=== PATIENT | male | born 1985 | race Caucasian/White ===

== ENCOUNTER 2016-10-29 08:12 | Emergency (ER) | payer SELFPAY ==
[2016-10-29 08:24] VITALS: BP 155/81
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
== END 2016-10-29 08:50 | disposition home or self-care (01) ==
LOC: FB.ED 08:12
DX: K04.7 Periapical abscess without sinus (principal); K05.10 Chronic gingivitis, plaque induced; Z88.0 Allergy status to penicillin
CPT/HCPCS: 99283

== ENCOUNTER 2017-10-09 02:28 | Emergency (ER) | payer SELFPAY ==
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
[2017-10-09 03:04] VITALS: BP 134/77
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
== END 2017-10-09 03:55 | disposition home or self-care (01) ==
LOC: FB.ED 02:28
DX: S62.667A Nondisplaced fracture of distal phalanx of left little finger, initial encounter for closed fracture (principal); S01.81XA Laceration without foreign body of other part of head, initial encounter; S01.111A Laceration without foreign body of right eyelid and periocular area, initial encounter; Y09 Assault by unspecified means; Z88.5 Allergy status to narcotic agent; Z88.0 Allergy status to penicillin
CPT/HCPCS: 12001; 12011; 12013; 29130; 70150; 71101-RT; 73130-50; 99283; 99285

== ENCOUNTER 2019-01-24 10:01 | Emergency (ER) | payer SELFPAY ==
[2019-01-24] MEDS ORDERED: Sodium Chloride 0.9% 10 ML Syringe FLUSH PRN (10:15)
[2019-01-24] MEDS ORDERED: Sodium Chloride 0.9% 1,000 ML IV ONE (10:19)
[2019-01-24] MEDS ORDERED: Ondansetron 4 MG/2 ML SDV IVPUSH ONE (10:19)
[2019-01-24] MEDS ORDERED: Ketorolac 30 MG/ML SDV IVPUSH ONE (10:21)
--- NOTE | 2019-01-24 10:39 | EDM.PDOC ---
ED HPI GENERAL MEDICAL PROBLEM - General Chief Complaint: Headache Stated Complaint: MIGRAINE Time Seen by Provider: 01/24/19 10:10 Source of Information: Reports: Patient - History of Present Illness INITIAL COMMENTS - FREE TEXT/NARRATIVE: Patient is a 33 YO WM who presented to the ED because of a throbbing headcahe, bifrontal,12/07 with associated N/V,photophobia,phonophobia and tinnitus. there is no associated fever or neck stiffness. He took OTC ibuprofen 600 mg without relief of his headache. Onset: Today Onset Date: 01/24/19 Onset Time: 07:30 Migraine Pain Score (Numeric/FACES): 10 - Related Data Allergies Allergy/AdvReac Type Severity Reaction Status Date / Time Penicillins Allergy Hives Verified 01/24/19 10:17 codeine Allergy Nausea and Uncoded 10/09/17 02:50 Vomiting Home Meds: Home Meds Ibuprofen 600 mg PO Q6H PRN 01/24/19 [History] Past Medical History - Past Health History Medical/Surgical History: Denies Medical/Surgical History Neurological History: Reports: Migraines Psychiatric History: Reports: Anxiety Social & Family History - Caffeine Use Caffeine Use: Reports: Coffee, Soda ED ROS GENERAL - Review of Systems Review Of Systems: See Below Constitutional: Reports: No Symptoms HEENT: Reports: No Symptoms Respiratory: Reports: No Symptoms Cardiovascular: Reports: No Symptoms Endocrine: Reports: No Symptoms GI/Abdominal: Reports: No Symptoms : Reports: No Symptoms Musculoskeletal: Reports: No Symptoms Skin: Reports: No Symptoms Neurological: Reports: Headache Psychiatric: Reports: No Symptoms Hematologic/Lymphatic: Reports: No Symptoms - Physical Exam Exam: See Below Exam Limited By: No Limitations General Appearance: Alert, No Apparent Distress Eye Exam: Bilateral Eye: PERRL Ears: Normal External Exam, Normal Canal Throat/Mouth: Normal Inspection, Normal Lips Head Exam: Atraumatic, Normocephalic Neck: Normal Inspection, Supple, Non-Tender Respiratory/Chest: No Respiratory Distress, Lungs Clear, Normal Breath Sounds, No Accessory Muscle Use Cardiovascular: Normal Peripheral Pulses, Regular Rate, Rhythm, No Gallop, No Murmur, No Rub GI/Abdominal: Normal Bowel Sounds, Soft, Non-Tender (Male) Exam: Deferred Rectal (Males) Exam: Normal Exam Neuro Exam (Abbreviated): Alert, Oriented, CN II-XII Intact, Normal Cognition, Normal Gait Course - Vital Signs Text/Narrative:: Labs reviewed and discussed with patient IVF Toradol 30 mg IV x1 Zofran 4 mg IV x1 imitrex 6 mg SC x1 Vistaril 50 mg IM x1 Last Recorded V/S: Last Vital Signs Temp 36.3 C 01/24/19 10:05 Pulse 58 L 01/24/19 11:19 Resp 16 01/24/19 11:19 BP 103/75 01/24/19 11:19 Pulse Ox 100 01/24/19 11:19 - Orders/Labs/Meds Orders: Active Orders 24 hr Category Date Time Status Sodium Chloride 0.9% [Saline Flush] Med 01/24/19 10:15 Active 10 ml FLUSH ASDIRECTED PRN Medication Orders Sodium Chloride (Saline Flush) 10 ml FLUSH ASDIRECTED PRN PRN Reason: IV Use Last Admin: 01/24/19 10:15 Dose: 10 ml Labs: Laboratory Tests 01/24/19 01/24/19 Range/Units 10:40 10:40 WBC 9.8 (4.5-12.0) X10-3/uL RBC 5.27 (4.30-5.75) x10(6)uL Hgb 15.9 (13.5-17.8) g/dL Hct 48.0 (30.0-51.3) % MCV 91.0 (80-96) fL MCH 30.1 (27.7-33.6) pg MCHC 33.1 (32.2-35.4) g/dL RDW 13.3 (11.5-15.5) % Plt Count 239 (125-369) X10(3)uL MPV 8.8 (7.4-10.4) fL Neut % (Auto) 65.3 (46-82) % Lymph % (Auto) 21.9 (13-37) % [place] % (Auto) 8.6 (4-12) % Eos % (Auto) 2 (1.0-5.0) % Baso % (Auto) 2 (0-2) % Neut # (Auto) 6.4 (1.6-8.3) # Lymph # (Auto) 2.1 (0.6-5.0) # [place] # (Auto) 0.8 (0.0-1.3) # Eos # (Auto) 0.2 (0.0-0.8) # Baso # (Auto) 0.2 (0.0-0.2) # Sodium 139 (135-145) mmol/L Potassium 4.1 (3.5-5.3) mmol/L Chloride 104 (100-110) mmol/L Carbon Dioxide 27 (21-32) mmol/L BUN 11 (7-18) mg/dL Creatinine 1.1 (0.70-1.30) mg/dL Est Cr Clr Drug Dosing 115.49 mL/min Estimated GFR (MDRD) > 60 (>60) BUN/Creatinine Ratio 10.0 (9-20) Glucose 102 (80-116) mg/dL Calcium 8.4 L (8.6-10.2) mg/dL Meds: Medications Generic Name Dose Route Start Last Admin Trade Name Freq PRN Reason Stop Dose Admin Sodium Chloride 10 ml 01/24/19 10:15 01/24/19 10:15 Saline Flush FLUSH 10 ml ASDIRECTED PRN Administration IV Use Discontinued Medications Generic Name Dose Route Start Last Admin Trade Name Freq PRN Reason Stop Dose Admin Hydroxyzine HCl 50 mg 01/24/19 11:03 01/24/19 11:12 Vistaril IM 01/24/19 11:04 50 mg ONETIME ONE Administration Sodium Chloride 1,000 mls @ 999 mls/hr 01/24/19 10:19 01/24/19 10:25 Normal Saline IV 01/24/19 11:19 999 mls/hr .BOLUS ONE Administration Ketorolac Tromethamine 30 mg 01/24/19 10:21 01/24/19 10:29 Toradol IVPUSH 01/24/19 10:22 30 mg ONETIME ONE Administration Ondansetron HCl 4 mg 01/24/19 10:19 01/24/19 10:26 Zofran IVPUSH 01/24/19 10:20 4 mg ONETIME ONE Administration Sumatriptan Succinate 6 mg 01/24/19 11:03 01/24/19 11:11 Imitrex SUBCUT 01/24/19 11:04 6 mg ONETIME ONE Administration Departure - Departure Time of Disposition: 11:55 Disposition: Home, Self-Care 01 Clinical Impression: Migraine - Discharge Information *PRESCRIPTION DRUG MONITORING PROGRAM REVIEWED*: Yes *COPY OF PRESCRIPTION DRUG MONITORING REPORT IN PATIENT ANGY: No Forms: ED Department Discharge - My Orders Last 24 Hours: My Active Orders 01/24/19 10:15 Sodium Chloride 0.9% [Saline Flush] 10 ml FLUSH ASDIRECTED PRN - Assessment/Plan Last 24 Hours: My Active Orders 01/24/19 10:15 Sodium Chloride 0.9% [Saline Flush] 10 ml FLUSH ASDIRECTED PRN
[2019-01-24] MEDS ORDERED: SUMAtriptan 6 MG/0.5 ML SDV SUBCUT ONE (11:03)
[2019-01-24] MEDS ORDERED: hydrOXYzine HCl 50 MG/ML SDV IM ONE (11:03)
[2019-01-24 12:44] VITALS: BP 117/60
== END 2019-01-24 12:35 | disposition home or self-care (01) ==
LOC: FB.ED 10:01
DX: G43.909 Migraine, unspecified, not intractable, without status migrainosus (principal); Z88.0 Allergy status to penicillin; Z88.5 Allergy status to narcotic agent; Z79.899 Other long term (current) drug therapy
CPT/HCPCS: 36415; 80048; 85025; 96361; 96372; 96374; 99283; J1885; J2405; J3030; J3410; J7030

== ENCOUNTER 2019-04-12 22:43 | Emergency (ER) | payer MEDICAID, OTHER ==
[2019-04-12] MEDS ORDERED: Cephalexin 250 MG Cap PO ONE (22:44)
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
[2019-04-13] MEDS ORDERED: Diphtheria,Pertussis(Acell),Tetanus Vaccine 0.5 ML SDV IM ONE (00:35)
[2019-04-13 01:55] VITALS: BP 126/66; PULSE 81
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
== END 2019-04-13 00:50 | disposition home or self-care (01) ==
LOC: FB.ED 22:43
DX: S01.81XA Laceration without foreign body of other part of head, initial encounter (principal); G43.909 Migraine, unspecified, not intractable, without status migrainosus; Z88.0 Allergy status to penicillin; Z88.5 Allergy status to narcotic agent; Z79.899 Other long term (current) drug therapy; Z23 Encounter for immunization; W26.0XXA Contact with knife, initial encounter
CPT/HCPCS: 12055; 90471; 90715; 99282; 99283; A9270

== ENCOUNTER 2022-01-26 16:51 | Emergency (ER) | payer MEDICAID ==
[2022-01-26] MEDS: Meclizine 25 MG Tab PO ONE (17:08)
[2022-01-26] MEDS: Ondansetron 4 MG Tab.DIS PO ONE (17:08)
[2022-01-26 17:24] VITALS: BP 130/87; PULSE 78
== END 2022-01-26 18:04 | disposition home or self-care (01) ==
LOC: FB.ED 16:51
DX: S09.90XA Unspecified injury of head, initial encounter (principal); Z88.0 Allergy status to penicillin; Z88.5 Allergy status to narcotic agent; W22.09XA Striking against other stationary object, initial encounter
CPT/HCPCS: 70450; 99283; A9270; Q0162